=== PATIENT | female | born 1990 | race Caucasian/White ===

== ENCOUNTER 2018-01-01 19:35 | Emergency (ER) | payer OTHER ==
[~2018-01-01] VITALS: Ht 157.5 cm; Wt 64.4 kg
[2018-01-01 20:05] VITALS: Ht 157.5 cm; Wt 64.4 kg
[2018-01-01 21:17] VITALS: BP 130/85
== END 2018-01-01 21:17 | disposition home or self-care (01) ==
LOC: ED 19:35
DX: L03.115 Cellulitis of right lower limb (principal); L02.415 Cutaneous abscess of right lower limb
CPT/HCPCS: J2001